=== PATIENT | male | born 1970 | race Caucasian/White ===

== ENCOUNTER 2022-12-20 20:33 | Emergency (ER) | payer SELFPAY ==
[~2022-12-20] VITALS: Ht 188 cm; Wt 72.6 kg
[2022-12-20 20:35] VITALS: BP 127/85
--- NOTE | 2022-12-20 20:55 | NUR ---
PT AMBULATED TO BED #11
--- NOTE | 2022-12-20 21:04 | NUR ---
CODE STROKE INITIATED BY DR. DONAHUE Addendum: 12/20/22 at 2105 by MEDGJ CODE STROKE CANCELLED PER DR. DONAHUE
[2022-12-20] MEDS ORDERED: predniSONE 20 MG TAB PO ONE (21:45)
[2022-12-20] MEDS ORDERED: PRED20TA5 PO (21:47)
[2022-12-20] MEDS ORDERED: ACYC400T14 PO (21:47)
[2022-12-20] MEDS ORDERED: POLY15SO74 LEFT EYE (21:47)
--- NOTE | 2022-12-20 23:33 | NUR ---
Patient discharged with v/s stable. Written and verbal after care instructions given and explained. Patient alert, oriented and verbalized understanding of instructions. All questions addressed prior to discharge. ID band removed. Patient advised to follow up with PMD. Rx of Zovirax, Prednisone, eye drops sent to preferred pharmacy. Patient educated on indication of medication including possible reaction and side effects. Opportunity to ask questions provided and answered.
[2022-12-20 23:35] VITALS: BP 130/79
== END 2022-12-20 23:33 | disposition home or self-care (01) ==
LOC: MED 20:33
DX: G51.0 Bell's palsy (principal); Z79.899 Other long term (current) drug therapy
CPT/HCPCS: 93005; 99283; J7512